=== PATIENT | male | born 1955 | race Caucasian/White ===

== ENCOUNTER → 2020-09-13 16:10 | Outpatient (CLI) | payer OTHER, SELFPAY ==
[2020-09-13 17:57] LABS: Vitamin D,25 Hydroxy 24.2 ng/mL
[2020-09-13 18:14] LABS: ALB/GLOB Ratio 1.2 RATIO (0.9-2.4); AST(SGOT) 15 U/L (15-37); Alanine Aminotransfer ALT/SGPT 23 U/L (16-61); Alkaline Phosphatase 62 U/L (45-117); Anion Gap 4 (5-15); BUN 13 mg/dL (7-18); BUN/Creat Ratio 14.8 RATIO (10-20); Calcium,Total 9.4 mg/dL (8.5-10.1); Chloride 106 mmol/L (98-107); Cholesterol 229 mg/dL (200); Creatinine, Serum 0.88 mg/dL (0.70-1.30); EST Glomerular Filtration Rate 92 mL/min (>60); Est Glom Filt Rate - Afr Amer 112 mL/min (>60); Globulin 3.2 g/dL (2.2-4.2); Glucose 75 mg/dL (74-106); High Density Lipoprotein 61 mg/dL; Potassium 3.9 mmol/L (3.5-5.1); Protein, Total 7.2 g/dL (6.4-8.2); Sodium Level 139 mmol/L (136-145); Triglycerides 58 mg/dL; Very Low Density Lipoprotein 12 mg/dL (5-40)
== END ==
PROVIDERS: Visit Provider Family Medicine
DX: Z00.00 Encounter for general adult medical examination without abnormal findings (principal); E55.9 Vitamin D deficiency, unspecified
CPT/HCPCS: 36415; 80053; 80061; 82306

== ENCOUNTER → 2020-10-15 07:55 | Outpatient (CLI) | payer OTHER, SELFPAY ==
--- NOTE | 2020-10-15 07:57 | RAD_ITS ---
STUDY: X-RAY - ESOPHAGUS (BARIUM SWALLOW) WITH FLUOROSCOPY REASON FOR EXAM: Male, 65 years old. DIFFICULTY SWALLOWING 1 MONTH -- FOOD GETS STUCK IN UPPER THROAT TECHNIQUE: 20 view(s) of the esophagus were obtained following swallowing of barium. FLUOROSCOPY TIME (if supplied): (0:30) minutes/seconds COMPARISON: None. FINDINGS: There is no demonstrated esophageal foreign body. There is no demonstrated stricture or mucosal abnormality. There is a small hiatal hernia of the fundus of the stomach. There is evidence of gastroesophageal reflux. The patient ingested a 12 mm tablet of barium without any difficulty. Normal visualized aortic arch and descending thoracic aorta. Normal visualized pulmonary parenchyma. There are diffuse degenerative changes of the visualized thoracic spine. RAD/Esophagus Dual Contrast IMPRESSION: Small sliding hiatal hernia with gastroesophageal reflux. Electronically Signed: Thomas Garcias, at 8:43 EST , Service support ,
== END ==
PROVIDERS: PCP Family Medicine; Referring Provider Family Medicine; Visit Provider Family Medicine
DX: R13.10 Dysphagia, unspecified (principal)
CPT/HCPCS: 74221

== ENCOUNTER 2021-02-08 13:02 | Emergency (ER) | payer OTHER, SELFPAY ==
[2021-02-08 13:04] VITALS: BP 111/56; PULSE 78; RESP 18; TEMP 36.1; O2SAT 100; BMI 21.9
--- NOTE | 2021-02-08 13:17 | CT_ITS ---
INDICATION: abdominal pain EXAMINATION: CT Abdomen And Pelvis W/O Contrast Injection TECHNIQUE: Helically acquired images were obtained of the abdomen and pelvis without the use of IV contrast. A radiation dose optimization technique was used for this scan. Oral contrast: None. COMPARISON: None FINDINGS: Evaluation of the solid organs and vascular structures is limited without intravenous contrast. Visualized lung bases: Unremarkable Liver: 1.1 cm cyst in the right lobe. Gallbladder: Unremarkable Spleen: Unremarkable Pancreas: Unremarkable Adrenal Glands: Unremarkable Kidneys: Mild left hydronephrosis. Mild left perinephric fat stranding. Questionable 3 mm stone in the left ureterovesical junction. Vasculature: Mild scattered aortoiliac atherosclerotic calcifications. Multiple pelvic phleboliths. GI Tract: Scattered diverticula throughout the colon without evidence of inflammation. The appendix is normal. Lymphadenopathy: None Peritoneum: No ascites. Bladder: Unremarkable Reproductive organs: The prostate is mildly enlarged. Bones/Soft tissues: Mild scattered degenerative changes of the visualized spine. CT/Abdomen/Pelvis without Cont IMPRESSION: Mild left hydronephrosis with questionable 3 mm obstructing stone in the left ureterovesical junction. Mild prostatomegaly. Recommend correlation with PSA levels. Electronically Signed: Dony Rosales MD at 14:07 EDT Tel , Service support ,
--- NOTE | 2021-02-08 13:19 | ED.DCSUM_ITS ---
History of Present Illness Chief Complaint: Flank Pain Narrative: Patient presents with left-sided flank pain that started about 3 hours ago it was intermittent sharp and stabbing radiating to his left lower quadrant and his left testicle. His symptoms are now gone. He has no current abdominal pain no flank pain no dysuria or hematuria he has no current testicular pain. Past medical history: None Medications: Reviewed Social history: Noncontributory Review of systems: All systems negative except as indicated General: No fever Eyes: No visual changes ENT: No upper airway congestion, normal voice Neck: No neck pain Cardiovascular: No chest pain Respiratory: No shortness of breath or cough Gastrointestinal: No current abdominal pain, no current CVA pain, no nausea vomiting or diarrhea Genitourinary: No current dysuria Musculoskeletal: Denies myalgias no difficulty with ambulation Skin: No rash Neurological: No memory loss, confusion or any focal weakness Hematologic: No easy bleeding or easy bruising Physical exam General: Well nourished, Well developed, No Acute Distress Head: Normocephalic, Atraumatic Eyes: Conjunctiva not pale ENT: Moist mucous membranes Neck: Supple, Nontender, No lymphadenopathy Cardiovascular: Regular rate, Regular rhythm Respiratory: No distress, CTA bilaterally Abdomen: Soft, Nontender, Nondistended Back: Nontender, Normal Inspection. Negative for: CVA tenderness Extremities: Nontender, No edema Skin: Normal color, No rash Neurological: Alert, Normal Strength, Normal Sensation Psychological: Normal affect Past Medical History - Allergies and Home Meds Allergies/Adverse Reactions: Allergies No Known Allergies Allergy (Verified 02/08/21 13:39) Primary Care Physician: Alexis Bansal MD [Primary Care Provider] - Physical Exam Vital Signs/Narrative: Vital Signs Temp Pulse Resp BP Pulse Ox 02/08/21 13:04 96.9 F L 78 18 111/56 L 100 Diagnostic/Tx/Re-eval - Medical Decision Making Patient is found to have a 3 mm stone, he has hematuria but no other signs of infection he appears well he is currently asymptomatic I will discharge with as needed analgesia and urology follow-up. ED Disposition - Plan for ED Patient: Diagnosis: Kidney stone on left side Instructions: ED Kidney Stone w/ Colic Prescriptions: Hydrocodone Bitart/Apap 5-325 [Eugene 5MG-325MG] 1 tablet PO Q4H PRN PRN 2 Days #10 tablet PRN Reason: Pain Transmission Status: Sent to [employer] #30 Referrals: Jh Fitzpatrick MD [STAFF PHYSICIAN] - 2 Days
[2021-02-08 13:36] VITALS: BP 108/66; PULSE 60; RESP 14; O2SAT 98
[2021-02-08 13:40] LABS: Hematocrit 41.1 % (40-54); Hemoglobin 13.7 g/dL (13.0-16.5); Mean Corp Hgb Conc 33.3 g/dL (32-36); Mean Corpuscular Hgb 30.9 pg (27.0-32.0); Mean Corpuscular Volume 92.8 fL (80-94); Mean Platelet Vol. 9.5 fl (6.2-12.0); Platelet Count 171 K/mm3 (150-450); RBC Distribution Width CV 12.6 % (11.6-14.6); RBC Distribution Width SD 43.2 fl (35.1-43.9); Red Blood Count 4.43 M/mm3 (4.6-6.2)
[2021-02-08 13:56] LABS: ALB/GLOB Ratio 1.1 RATIO (0.9-2.4); AST(SGOT) 12 U/L (15-37); Alanine Aminotransfer ALT/SGPT 20 U/L (16-61); Albumin, Serum 3.6 g/dL (3.2-5.0); Alkaline Phosphatase 60 U/L (45-117); Anion Gap 5 (5-15); BUN 16 mg/dL (7-18); BUN/Creat Ratio 17.8 RATIO (10-20); Calcium,Total 9.4 mg/dL (8.5-10.1); Chloride 106 mmol/L (98-107); EST Glomerular Filtration Rate 90 mL/min (>60); Est Glom Filt Rate - Afr Amer 109 mL/min (>60); Estimated Creatinine Clearance 71.53 ml/min; Globulin 3.4 g/dL (2.2-4.2); Glucose 109 mg/dL (74-106); Potassium 3.8 mmol/L (3.5-5.1); Sodium Level 139 mmol/L (136-145)
[2021-02-08 14:41] LABS: Bacteria 0 SEEN /hpf (None Seen); Mucous, Urine 0 SEEN /hpf (<or=2+); Squamous Epithelial Cells - UA 0 SEEN /hpf (0-5); White Blood Cells 0 SEEN /hpf (0-5)
[2021-02-08 14:44] LABS: Color, Urine Yellow (Yellow); Glucose, Dipstick Normal (Normal); Ketone-Dipstick Negative (Negative); Leukocyte Esterase-Dipstick Negative /ul (Negative); Nitrite-Dipstick Negative (Negative); Occult Blood-Urine 250 /ul (Negative); Protein-Dipstick 15 mg/dl (Negative); Urine Bilirubin Dipstick Negative (Negative); Urine Clarity Clear (Clear); Urine Urobilinogen 1 mg/dl (Normal)
[2021-02-08 14:52] LABS: Red Blood Cells-Urine 25-50 SEEN /hpf (0-5)
[2021-02-08 15:17] VITALS: BP 126/87; PULSE 62; RESP 15; O2SAT 98
== END 2021-02-08 15:18 | disposition home or self-care (01) ==
PROVIDERS: Emergency Provider Emergency Medicine; PCP Family Medicine
DX: N20.0 Calculus of kidney (principal); Z79.82 Long term (current) use of aspirin
CPT/HCPCS: 74176; 80053; 81001; 85027; 99285; A4216

== ENCOUNTER → 2021-02-14 15:31 | Outpatient (CLI) | payer OTHER, SELFPAY ==
[2021-02-08 13:04] VITALS: BMI 21.9
[2021-02-14 18:07] LABS: Anion Gap 3 (5-15); BUN 18 mg/dL (7-18); BUN/Creat Ratio 17.1 RATIO (10-20); Calcium,Total 9.4 mg/dL (8.5-10.1); Chloride 100 mmol/L (98-107); Creatinine, Serum 1.05 mg/dL (0.70-1.30); EST Glomerular Filtration Rate 75 mL/min (>60); Est Glom Filt Rate - Afr Amer 91 mL/min (>60); Glucose 86 mg/dL (74-106); Potassium 4.1 mmol/L (3.5-5.1); Sodium Level 135 mmol/L (136-145)
== END ==
PROVIDERS: PCP Family Medicine; Visit Provider Family Medicine
DX: N20.0 Calculus of kidney (principal)
CPT/HCPCS: 36415; 80048

== ENCOUNTER 2021-02-15 08:51 | Emergency (ER) | payer OTHER, SELFPAY ==
[2021-02-15 08:52] VITALS: BP 152/77; PULSE 71; RESP 16; TEMP 36.7; O2SAT 99; BMI 22.6
[2021-02-15] MEDS: Ondansetron 4 MG/2 ML Vial IV (09:16)
[2021-02-15] MEDS: Ketorolac 15 MG/ML Vial IV (09:16)
[2021-02-15] MEDS: 0.9% Normal Saline 1,000 ML 250 ML IV (09:19)
--- NOTE | 2021-02-15 09:32 | ED.VIS.GEN ---
History of Present Illness Chief Complaint: Flank Pain Informant: Patient Onset: Weeks Context: Sudden Onset Timing: Intermittent, Waxes and wanes Quality: Left-sided flank and lower quadrant pain Location: Left side Current Severity: Mild Maximum Severity: Severe Worsened by: Nothing Relieved by: Percocet Associated Symptoms: Nausea and urgency Narrative: Patient is 65-year-old male who was seen 1 week ago and diagnosed with an obstructing left ureterovesical junction stone that measured 3 mm in size. He followed up with his PCP. He was placed on Flomax. Presume this was due to BPH since he had evidence of BPH on scan. He denies fever, chills night sweats. He denies vomiting. He denies diarrhea. He denies blood in his urine or dysuria. There is no history of trauma. He is scheduled to see urology next week. Prior similar symptoms: Yes Recent Illness/Hospitalization: Yes - Past Medical History (1) Ureterolithiasis Status: Acute Past Medical History - Allergies and Home Meds Allergies/Adverse Reactions: Allergies No Known Allergies Allergy (Verified 02/15/21 08:52) Primary Care Physician: Alexis Bansal MD [Primary Care Provider] - Prior records reviewed: Yes Surgical History: noncontributory Lives: Spouse/ Significant Other Smoking Status: Never smoker Alcohol: None Drugs: None Review of Systems General: Denies: Chills, Fever, Malaise, Subjective, Sweats ENT: Denies: Rhinorrhea, Sore throat Cardiovascular: Denies: Chest pain, Palpitations Respiratory: Denies: Dyspnea, Cough, Sputum Gastrointestinal: Reports: Abdominal pain, Nausea. Denies: Vomiting, Diarrhea Genitourinary: Reports: - - Urgency. Denies: Dysuria, Hematuria, Frequency Musculoskeletal: Reports: Back pain - Flank left. Denies: Myalgias, Arthralgias, Neck pain, Swelling, Extremity Pain, - Skin: Denies: Wounds Neurological: Denies: Weakness, Parasthesia Hematologic: Denies: Easy bruising, Easy bleeding Physical Exam Vital Signs/Narrative: Vital Signs Temp Pulse Resp BP Pulse Ox 02/15/21 08:52 98.1 F 71 16 152/77 H 99 Inital Vital Signs reviewed: Yes General: Well nourished, Well developed, Acute Distress Head: Normocephalic, Atraumatic Eyes: Perrl, EOMI. Negative for: Pale conjunctiva, Scleral icterus ENT: Moist mucous membranes, No rhinorrhea Neck: Supple, Nontender Cardiovascular: Regular rate, Regular rhythm, No murmurs, Normal S1, Normal S2 Respiratory: No distress, CTA bilaterally, Chest nontender Abdomen: Soft, Nontender, Nondistended, Normal bowel sounds. Negative for: Hernia irreducible Back: Nontender, Normal Inspection, CVA tenderness - Left side Extremities: Nontender, No edema Skin: Normal color, No rash, No Trauma Neurological: Alert, Oriented x3, Cranial nerves II-XII grossly intact, Normal Strength, Normal Sensation Psychological: Normal affect Diagnostic/Tx/Re-eval Laboratory Results 02/15/21 09:50 Urine Color Yellow Urine Clarity Sl. Cloudy Urine pH 6.0 Ur Specific Bivins 1.020 Urine Protein Negative Urine Glucose (UA) Normal Urine Ketones Negative Urine Occult Blood Negative Urine Nitrite Negative Urine Bilirubin Negative Urine Urobilinogen Normal Ur Leukocyte Esterase 25 H Urine RBC 0 SEEN Urine WBC 0-5 SEEN Ur Squamous Epith Cells 0 SEEN Urine Bacteria RARE Urine Mucus 0 SEEN Urine is not infected. Patient was reassessed at 1040. He is pain-free. Plan is to discharge with prescription for anti-inflammatory. - Medical Decision Making Urine was obtained and patient was medicated with Toradol and Zofran since he has normal renal function. He did drive himself to the emergency department. ED Disposition - Plan for ED Patient: Disposition: Home or Assisted Living Diagnosis: Hydronephrosis with urinary obstruction due to ureteral calculus, Renal colic on left side Prescriptions: Ketorolac [Toradol] 10 mg PO Q6H #20 tab Transmission Status: Pending to [employer] #30 Referrals: Alexis Bansal MD [Primary Care Provider] - Jh Fitzpatrick MD [STAFF PHYSICIAN] - 5-7 Days
[2021-02-15 10:05] LABS: Mucous, Urine 0 SEEN /hpf (<or=2+); Red Blood Cells-Urine 0 SEEN /hpf (0-5); Squamous Epithelial Cells - UA 0 SEEN /hpf (0-5)
[2021-02-15 10:09] LABS: Color, Urine Yellow (Yellow); Glucose, Dipstick Normal (Normal); Ketone-Dipstick Negative (Negative); Leukocyte Esterase-Dipstick 25 /ul (Negative); Nitrite-Dipstick Negative (Negative); Occult Blood-Urine Negative /ul (Negative); Protein-Dipstick Negative (Negative); Urine Bilirubin Dipstick Negative (Negative); Urine Clarity Sl. Cloudy (Clear); Urine Urobilinogen Normal (Normal)
[2021-02-15 10:16] LABS: Bacteria RARE /hpf (None Seen); White Blood Cells 0-5 SEEN /hpf (0-5)
--- NOTE | 2021-02-15 10:49 | ED.VISSUMM ---
- ER Visit Summary Date of Service: 02/15/21 Chief Complaint: [] History of Present Illness: The patient is a 65 M [] Physical Examination: [] Test Results: [] Emergency Department Course and Treatment: [] Treatment Plan: [] Disposition: [] Impression: [] This note was generated with [employer] dictation software. It may contain incorrect words, spelling, and punctuation that were not noted in review of the chart prior to signing ED Disposition - Plan for ED Patient: Disposition: Home or Assisted Living Diagnosis: Hydronephrosis with urinary obstruction due to ureteral calculus, Renal colic on left side Instructions: ED Kidney Stone w/ Colic Prescriptions: Ketorolac [Toradol] 10 mg PO Q6H #20 tab Transmission Status: Sent to [facility] #30 Referrals: Jh Fitzpatrick MD [STAFF PHYSICIAN] - 5-7 Days Alexis Bansal MD [Primary Care Provider] -
[2021-02-15 11:20] VITALS: BP 102/56; PULSE 70; RESP 16
== END 2021-02-15 11:22 | disposition home or self-care (01) ==
PROVIDERS: Emergency Provider Emergency Medicine; PCP Family Medicine
DX: N13.2 Hydronephrosis with renal and ureteral calculous obstruction (principal); Z79.82 Long term (current) use of aspirin
CPT/HCPCS: 81001; 96361; 96374; 96375; 99283; J7030; J2405

== ENCOUNTER 2021-12-02 13:40 | Day surgery (SDC) | payer MEDICARE, SELFPAY ==
--- NOTE | 2021-11-27 13:20 | HP.PCM_ITS ---
History and Physical Date of Admission: 12/02/21 Intake Visit Reasons: Dysphagia Allergies No Known Allergies Allergy (Verified 02/15/21 08:52) [facility] Medical History (Updated 10/30/21 @ 14:[address] Lombardo Friend, DO) Hiatal hernia Social History Smoking Status: Never smoker HPI HPI Details: SHANNON HEALY, is a 66 M who presents to the office today for evaluation of esophageal dysphagia. He is not having any chest pain or shortness of breath. He denies any history of gastroesophageal reflux disease. He is not have any nausea. He has no history of diabetes or COPD. His weight has been stable. He has no family history of any GI malignancy. Four year prior he began having difficulty with swallowing with progressive wo rsening. ENT Dr. Alvarez did an office procedure and was unable to see an abnormality. Barium Swallow performed 10/15/20 and found a small sliding hiatal hernia with GERD. CT abd/pel without contrast 02/08/21 found 1.1cm cyst in right lobe of liver. Scattered diverticula throughout the colon without evidence of inflammation. Mild left kidney hydronephrosis. Mild left perinephric fat stranding with questionable 3mm stone. Mild prostatomegaly, recommend correlation with PSA. ROS Eyes Eyes: Positive for vision loss ENT ENT: Positive for hearing loss and tinnitus Endo Endocrine: Positive for cold intolerance Exam Const General: cooperative and comfortable Nutritional Appearance: average body habitus and well nourished [facility] Head: normal to inspection Ears: hearing grossly normal bilaterally Nose: external nose normal Face and sinus: normal facial exam Mouth: oral mucosae normal Throat: posterior oropharynx normal Eyes General: appearance normal, both eyes and all related structures Neck Neck: normal visual inspection Chest Chest palpation & inspection: normal inspection of the chest and normal palpation of entire chest wall Resp Effort & Inspection: normal respiratory effort Auscultation: Bilateral: Clear to Auscultation Cardio Palpation: normal PMI Rate: regular rate Rhythm: regular rhythm GI Inspection: normal to inspection Auscultation: normal bowel sounds Percussion: normal to percussion Palpation: no hepatosplenomegaly Skin General: no rashes or lesions noted Neuro General: patient alert Extrem General: normal to inspection Psych Affect: normal affect Quality Reporting Tobacco Screening ([facility] 138) Smoking Status: Never smoker Assessment and Plan Assessment and Plan (1) Dysphagia: Orders: Orders: EGD Today Plan - Dr. Lombardo Friend, DO: Differential diagnosis for his esophageal dysphagia including cricopharyngeal achalasia, gastric inlet patch with inflammation, esophageal diverticulum, esophagitis, esophageal web or esophageal ring. He will undergo an upper endoscopy. He was explained the, benefits and risk including infection, sepsis, perforation, need emergent surgery . He will have an ASA of 1 (2) Hiatal hernia: Status: Acute Plan - Dr. Lombardo Friend, DO: Patient was discovered to have a small hiatal hernia which was seen on previous CT scan in January 2020. At this time is not having any problems with heartburn, nausea, chest pain. Therefore I told her that it and I would not recommend any surgical evaluation for the hiatal hernia. Of course I will assess it until we perform upper endoscopy. No change in H&P
[2021-12-02] VITALS (7 sets, daily range): BP systolic 108–137; BP diastolic 71–75; PULSE 59–74; RESP 16–18; TEMP 36.5–37; O2SAT 93–100; BMI 24.7
[2021-12-02] MEDS: Lactated Ringers 1,000 ML 15 ML IV (14:04)
--- NOTE | 2021-12-02 14:30 | EGD_PTH ---
PATIENT: SHANNON HEALY LOC: [facility] U#:[id number] AGE/SX: 66/M ROOM: RE12/02/[address]: Dr. Grupo Potter DO : 1955 BED: DIS: 12/02/2021 SPEC #: [id number] RECD: 12/02/21 16:48 STATUS: ANUM DANIELLE #: [id number] JONH: 12/02/21 14:[address]: Grupo Potter DEPT: SURGICAL PATHOLOGY RECD BY: Mignon Mills ENTERED: 12/03/21 08:46 SP TYPE: EGD BIOPSY CARROLL DR: Dr. Alexis Bansal MD Tissues: Esophagus, NOS Procedures: Special Stain Group II Surgery Specimen Level IV Alcian Blue/PAS (control) HEADER OPERATION: EGD with biopsy and dilation (MAC) PRE-OP DIAGNOSIS: Dysphagia, hiatal hernia TISSUE SUBMITTED: Distal esophagus biopsy MICROSCOPIC DIAGNOSIS Distal esophagus, biopsy: Fragments of gastroesophageal mucosa with moderate chronic inflammation. Intestinal metaplasia (goblet cell metaplasia) is not identified. See comment. FOREIGN:sophie 12/04/2021 COMMENT Alcian blue/PAS stain with matched control is used in the evaluation of the specimen. MICROSCOPIC DESCRIPTION Slides are reviewed. GROSS DESCRIPTION Received in fixative is one container labeled with the patient's name and designated distal esophagus biopsy. The specimen consists of multiple irregular fragments of light barnett soft tissue that in aggregate measure 2 x 0.6 x 0.1 cm. The specimen is totally submitted in one cassette. / FOREIGN:sophie 12/03/2021 TC:3 CPT: 27893, 60334
--- NOTE | 2021-12-02 14:47 | PCM.HP.BLA ---
History and Physical Date of Admission: 12/02/21 6 M who presents to the office today for evaluation of esophageal dysphagia. He is not having any chest pain or shortness of breath. He denies any history of gastroesophageal reflux disease. He is not have any nausea. He has no history of diabetes or COPD. His weight has been stable. He has no family history of any GI malignancy. Four year prior he began having difficulty with swallowing with progressive worsening. ENT Dr. Alvarez did an office procedure and was unable to see an abnormality. Barium Swallow performed 10/15/20 and found a small sliding hiatal hernia with GERD. CT abd/pel without contrast 02/08/21 found 1.1cm cyst in right lobe of liver. Scattered diverticula throughout the colon without evidence of inflammation. Mild left kidney hydronephrosis. Mild left perinephric fat stranding with questionable 3mm stone. Mild prostatomegaly, recommend correlation with PSA. ROS Eyes Eyes: Positive for vision loss ENT ENT: Positive for hearing loss and tinnitus Endo Endocrine: Positive for cold intolerance Exam Const General: cooperative and comfortable Nutritional Appearance: average body habitus and well nourished HENMT Head: normal to inspection Ears: hearing grossly normal bilaterally Nose: external nose normal Face and sinus: normal facial exam Mouth: oral mucosae normal Throat: posterior oropharynx normal Eyes General: appearance normal, both eyes and all related structures Neck Neck: normal visual inspection Chest Chest palpation & inspection: normal inspection of the chest and normal palpation of entire chest wall Resp Effort & Inspection: normal respiratory effort Auscultation: Bilateral: Clear to Auscultation Cardio Palpation: normal PMI Rate: regular rate Rhythm: regular rhythm GI Inspection: normal to inspection Auscultation: normal bowel sounds Percussion: normal to percussion Palpation: no hepatosplenomegaly Skin General: no rashes or lesions noted Neuro General: patient alert Extrem General: normal to inspection Psych Affect: normal affect Quality Reporting Tobacco Screening ([facility] 138) Smoking Status: Never smoker Assessment and Plan Assessment and Plan (1) Dysphagia: Orders: Orders: EGD Today Plan - Dr. Lombardo Friend, DO: Differential diagnosis for his esophageal dysphagia including cricopharyngeal achalasia, gastric inlet patch with inflammation, esophageal diverticulum, esophagitis, esophageal web or esophageal ring. He will undergo an upper endoscopy. He was explained the, benefits and risk including infection, sepsis, perforation, need emergent surgery . He will have an ASA of 1 (2) Hiatal hernia: Status: Acute Plan - Dr. Lombardo Friend, DO: Patient was discovered to have a small hiatal hernia which was seen on previous CT scan in January 2020. At this time is not having any problems with heartburn, nausea, chest pain. Therefore I told her that it and I would not recommend any surgical evaluation for the hiatal hernia. Of course I will assess it until we perform upper endoscopy. This is an up to date H&P and there are no changes from when the patient was seen in the office
--- NOTE | 2021-12-02 15:19 | OP.EGD_ITS ---
Patient Name: Trey Guerra Procedure Date: 12/02/2021 2:47 PM Date of : 1955 Age: 66 Procedure: Upper GI endoscopy Indications: Dysphagia Providers: Grupo Potter DO Referring MD: Grupo Potter DO Medicines: See the Anesthesia note for documentation of the administered medications Patient Profile: This is a 66 year old male. Refer to note in patient chart for documentation of history and physical. Patient has symptoms of chronic dysphagia. Complications: No immediate complications. Procedure: Pre-Anesthesia Assessment: - Prior to the procedure, a History and Physical was performed, and patient medications and allergies were reviewed. The patient is competent. The risks and benefits of the procedure and the sedation options and risks were discussed with the patient. All questions were answered and informed consent was obtained. Patient identification and proposed procedure were verified by the physician in the pre-procedure area. Mental Status Examination: alert and oriented. Airway Examination: normal oropharyngeal airway and neck mobility. Respiratory Examination: clear to auscultation. CV Examination: normal. Prophylactic Antibiotics: The patient does not require prophylactic antibiotics. Prior Anticoagulants: The patient has taken no previous anticoagulant or antiplatelet agents. ASA Grade Assessment: II - A patient with mild systemic disease. After reviewing the risks and benefits, the patient was deemed in satisfactory condition to undergo the procedure. The anesthesia plan was to use moderate sedation / analgesia (conscious sedation). Immediately prior to administration of medications, the patient was re-assessed for adequacy to receive sedatives. The heart rate, respiratory rate, oxygen saturations, blood pressure, adequacy of pulmonary ventilation, and response to care were monitored throughout the procedure. The physical status of the patient was re-assessed after the procedure. After obtaining informed consent, the endoscope was passed under direct vision. Throughout the procedure, the patient's blood pressure, pulse, and oxygen saturations were monitored continuously. The Endoscope was introduced through the mouth, and advanced to the second part of duodenum. The upper GI endoscopy was accomplished without difficulty. The patient tolerated the procedure well. Moderate Sedation: Moderate (conscious) sedation was administered by the endoscopy nurse and supervised by the endoscopist. The patient's oxygen saturation, heart rate, blood pressure and response to care were monitored. Total physician intraservice time was 15 minutes. Scope In: 3:02:01 PM Scope Out: 3:09:13 PM Total Procedure Duration Time 0 hours 7 minutes 12 seconds Findings: A non-bleeding diverticulum with a small opening and no stigmata of recent bleeding was found at the cricopharyngeus. A moderate Schatzki ring was found in the middle third of the esophagus and in the lower third of the esophagus. A guidewire was placed and the scope was withdrawn. Dilation was performed with a Savary dilator with no resistance at 27 Fr. A guidewire was placed and the scope was withdrawn. Dilation was performed with a Savary dilator with no resistance at 51 Fr. The dilation site was examined following endoscope reinsertion and showed moderate improvement in luminal narrowing. Estimated blood loss was minimal. Mucosal changes including circumferential folds were found in the middle third of the esophagus and in the lower third of the esophagus. Biopsies were obtained from the proximal and distal esophagus with cold forceps for histology of suspected eosinophilic esophagitis. Verification of patient identification for the specimen was done. Estimated blood loss was minimal. A medium-sized hiatal hernia was present. No other significant abnormalities were identified in a careful examination of the stomach. The second portion of the duodenum was normal. 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 - Moderate Schatzki ring. Dilated. - Esophageal mucosal changes consistent with eosinophilic esophagitis. Biopsied. - Medium-sized hiatal hernia. - Normal second portion of the duodenum. Recommendation: - Discharge patient to home. - Resume previous diet today. - Continue present medications. - Await pathology results. - Return to my office. Procedure Code(s): --- Professional --- 46136, Esophagogastroduodenoscopy, flexible, transoral; with insertion of guide wire followed by passage of dilator(s) through esophagus over guide wire 50925, 59, Esophagogastroduodenoscopy, flexible, transoral; with biopsy, single or multiple 94240, 59, Moderate sedation services provided by the same physician or other qualified health primary care provider performing the diagnostic or therapeutic service that the sedation supports, requiring the presence of an independent trained observer to assist in the monitoring of the patient's level of consciousness and physiological status; initial 15 minutes of intraservice time, patient age 5 years or older CPT copyright 2017 [employer]. All rights reserved. The codes documented in this report are preliminary and upon editor department review may be revised to meet current compliance requirements. Grupo Potter DO 12/02/2021 3:18:57 PM This report has been signed electronically. Number of Addenda: 1 Note Initiated On: 12/02/2021 2:47 PM Addendum Number: 1 Addendum Date: 07/13/2022 6:52:36 AM MAC was used for sedation during this procedure. Grupo Potter DO 07/13/2022 6:52:42 AM This report has been signed electronically.
--- NOTE | 2021-12-02 15:20 | OP.CCLET_ITS ---
07/13/2022 Alexis Bansal MD [address] [id number] Re : Upper GI endoscopy procedure for Trey Guerra Dear Dr. Bansal This procedure was performed on Thursday, December 02, 2021. 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 - Moderate Schatzki ring. Dilated. - Esophageal mucosal changes consistent with eosinophilic esophagitis. Biopsied. - Medium-sized hiatal hernia. - Normal second portion of the duodenum. Recommendations : - Discharge patient to home. - Resume previous diet today. - Continue present medications. - Await pathology results. - Return to my office. My findings are described in the full procedure note, which is enclosed. If I can be of further assistance, please feel free to contact me at . Sincerely, Grupo Potter, 12/02/2021 3:18:57 PM This report has been signed electronically.
== END 2021-12-02 23:59 | disposition home or self-care (01) ==
LOC: EN 13:40 → AC 13:45
PROVIDERS: PCP Family Medicine; Referring Provider Family Medicine; Visit Provider Internal Medicine Gastroenterology
PROC: 0DJ08ZZ Inspection of Upper Intestinal Tract, Via Natural or Artificial Opening Endoscopic (ICD-10-PCS; CPT 43235; principal; 2021-12-02 14:25)
DX: K20.0 Eosinophilic esophagitis (principal); K22.2 Esophageal obstruction; K44.9 Diaphragmatic hernia without obstruction or gangrene; Z79.82 Long term (current) use of aspirin; Z79.899 Other long term (current) drug therapy
CPT/HCPCS: 43248; 43239; 87426; 88305; 88313; C9803; J7120; C1769; J2405

== ENCOUNTER → 2022-12-18 | Outpatient (CLI) | payer MEDICARE, SELFPAY ==
[2022-12-18 15:44] LABS: Absolute Lymphocyte Count 1.39 X10^3/uL (0.83-4.51); Absolute Neutrophil Count 2.6 X10^3/uL (2.0-7.7); Basophil# 0.02 X10^3/uL; Basophil% 0.5 % (0-1); Eosinophil# 0.08 X10^3/uL; Eosinophils% 1.8 % (0-5); Hematocrit 44.9 % (40-54); Lymphocyte # 1.39 X10^3/ul (0.83-4.51); Lymphocyte % 31.3 % (19-41); Mean Corp Hgb Conc 33.4 g/dL (32-36); Mean Corpuscular Volume 92.8 fL (80-94); Mean Platelet Vol. 9.7 fl (6.2-12.0); Monocyte# 0.32 X10^3/uL; Monocyte% 7.2 % (0-10); NRBC Flagged by Analyzer 0 % (0-5); Neutrophil # 2.62 X10^3/uL (2.7-7.7); Platelet Count 195 K/mm3 (150-450); RBC Distribution Width CV 12.4 % (11.6-14.6); RBC Distribution Width SD 42.5 fl (35.1-43.9); Red Blood Count 4.84 M/mm3 (4.6-6.2); White Blood Count 4.4 K/mm3 (4.4-11.0)
[2022-12-18 15:46] LABS: Vitamin D,25 Hydroxy 116.6 ng/mL
[2022-12-18 15:53] LABS: ALB/GLOB Ratio 1.2 RATIO (0.9-2.4); AST(SGOT) 17 U/L (15-37); Alanine Aminotransfer ALT/SGPT 20 U/L (16-61); Albumin, Serum 3.8 g/dL (3.2-5.0); Alkaline Phosphatase 48 U/L (45-117); Anion Gap 7 (5-15); BUN 12 mg/dL (7-18); BUN/Creat Ratio 13.1 RATIO (10-20); Bilirubin, Direct 0.28 mg/dL (0.00-0.30); Calcium,Total 9.4 mg/dL (8.5-10.1); Chloride 103 mmol/L (98-107); Cholesterol 192 mg/dL (200); Creatinine, Serum 0.92 mg/dL (0.70-1.30); EST Glomerular Filtration Rate 88 mL/min (>60); Est Glom Filt Rate - Afr Amer 106 mL/min (>60); Globulin 3.1 g/dL (2.2-4.2); Glucose 83 mg/dL (74-106); High Density Lipoprotein 53 mg/dL; Potassium 3.9 mmol/L (3.5-5.1); Protein, Total 6.9 g/dL (6.4-8.2); Sodium Level 138 mmol/L (136-145); Triglycerides 98 mg/dL; Very Low Density Lipoprotein 20 mg/dL (5-40)
== END | disposition home or self-care (01) ==
LOC: MFPLAB 11:31
PROVIDERS: PCP Family Medicine; Referring Provider Family Medicine; Visit Provider Family Medicine
DX: E78.5 Hyperlipidemia, unspecified (principal); E55.9 Vitamin D deficiency, unspecified
CPT/HCPCS: 36415; 80053; 80061; 82248; 82306; 85025

== ENCOUNTER → 2023-07-09 | Outpatient (CLI) | payer MEDICARE, SELFPAY ==
[2023-07-09 12:46] LABS: PSA,Total - Annual Screen 1.45 ng/mL (0.00-4.00)
== END | disposition home or self-care (01) ==
LOC: MTLAB 10:47
PROVIDERS: PCP Family Medicine; Referring Provider Family Medicine; Visit Provider Family Medicine
DX: Z12.5 Encounter for screening for malignant neoplasm of prostate (principal)
CPT/HCPCS: 36415; 84153; G0103

== ENCOUNTER → 2024-01-05 | Outpatient (CLI) | payer MEDICARE, SELFPAY ==
[2024-01-05 12:20] LABS: Absolute Lymphocyte Count 1.48 X10^3/uL (0.83-4.51); Absolute Neutrophil Count 3.5 X10^3/uL (2.0-7.7); Basophil# 0.05 X10^3/uL; Basophil% 0.9 % (0-1); Eosinophil# 0.13 X10^3/uL; Eosinophils% 2.3 % (0-5); Hematocrit 44.9 % (40-54); Hemoglobin 14.7 g/dL (13.0-16.5); Lymphocyte # 1.48 X10^3/ul (0.83-4.51); Lymphocyte % 26.1 % (19-41); Mean Corp Hgb Conc 32.7 g/dL (32-36); Mean Corpuscular Hgb 29.6 pg (27.0-32.0); Mean Corpuscular Volume 90.5 fL (80-94); Mean Platelet Vol. 9.1 fl (6.2-12.0); Monocyte# 0.46 X10^3/uL; Monocyte% 8.1 % (0-10); NRBC Flagged by Analyzer 0 % (0-5); Neutrophil # 3.54 X10^3/uL (2.7-7.7); Neutrophil % 62.2 % (47-70); Platelet Count 253 K/mm3 (150-450); RBC Distribution Width CV 12.5 % (11.6-14.6); RBC Distribution Width SD 41.5 fl (35.1-43.9); Red Blood Count 4.96 M/mm3 (4.6-6.2); White Blood Count 5.7 K/mm3 (4.4-11.0)
[2024-01-05 12:47] LABS: Vitamin D,25 Hydroxy 96.9 ng/mL
[2024-01-05 12:58] LABS: ALB/GLOB Ratio 1.1 RATIO (0.9-2.4); AST(SGOT) 18 U/L (15-37); Alanine Aminotransfer ALT/SGPT 16 U/L (16-61); Albumin, Serum 3.8 g/dL (3.2-5.0); Alkaline Phosphatase 58 U/L (45-117); Anion Gap 7 (5-15); BUN 14 mg/dL (7-18); BUN/Creat Ratio 14.9 RATIO (10-20); Calcium,Total 9.4 mg/dL (8.5-10.1); Chloride 104 mmol/L (98-107); Cholesterol 210 mg/dL (200); Creatinine, Serum 0.94 mg/dL (0.70-1.30); EST Glomerular Filtration Rate 85 mL/min (>60); Est Glom Filt Rate - Afr Amer 102 mL/min (>60); Globulin 3.4 g/dL (2.2-4.2); Glucose 98 mg/dL (74-106); High Density Lipoprotein 56 mg/dL; Potassium 3.8 mmol/L (3.5-5.1); Protein, Total 7.2 g/dL (6.4-8.2); Sodium Level 139 mmol/L (136-145); Triglycerides 87 mg/dL; Very Low Density Lipoprotein 17 mg/dL (5-40)
--- OUTSIDE RECORDS SUMMARY | 2024-01-05 13:50 | XMS RPT_ITS | CCD ---
Author Name Unknown Address [address] [place] [address] Organization [facility] Care Team Providers Care Care Transitions Manager Name Role Phone Sagar Hernandez DO Primary Care Provider [phone] Friend [employer]upo MTZ Unavailable [phone] Attending Unavailable UBALDO REY Referring UnavailSAGAR Bailey Primary Care Unavailable PHOEBE BAR Attending Unavailable UBALDO REY Referring Unavailabl e SAGAR HERNANDEZ Primary Care Unavailable UBALDO REY Referring Unavailabl e SAGAR HERNANDEZ Primary Care Unavailable UBALDO REY Attending UnavailSAGAR Bailey Primary Care Unavailable Medications Completed/Discontinued Medications Medication Drug Class(es) Dates Sig (Normalized) Sig (Original) tamsulosin hydrochloride 0.4 mg oral capsule (1 source) alpha-Adrenergic Robert Start: 07-12-2014 take 1 capsule by mouth once daily at bedtime tamsulosin (FLOMAX) 0.4 mg cp24 Indications: Urinary retention Take 1 capsule by mouth daily at bedtime. 30 capsule 0 07/12/2014 Active Problems Active Problems Problem Classification Problem Date Documented Da te Episodic/Chronic Esophageal disorders (2 sources) Zenker's diverticulum; Translations: [Diverticulum of esophagus, acquired] Onset: 07-20-2023 05-19-2023 Episodic Past or Other Problems Problem Classification Problem Date Documented Da te Episodic/Chronic Abdominal hernia (1 source) Umbilical hernia; Translations: [Umbilical hernia without obstruction or gangrene] Onset: 06-11-2014 06-11-2014 Episodic Other screening for suspected conditions (not mental disorders or infectious disease) (1 source) Patient encounter status; Translations: [Encounter for screening for malignant neoplasm of intestinal tract, unspecified] Onset: 06-11-2014 06-11-2014 Episodic Results Test Name Value Interpretation Reference Range Facil ity Encounters Encounter Date Encounter Type Care Provider Facility Start: 07-20-2023 End: 07-20-2023 ambulatory PHOEBE Bri YOSVANY Facility:[facility] Start: 06-02-2023 End: 06-03-2023 ambulatory UBALDO REY Facility:[facility] Start: 05-19-2023 End: 05-20-2023 ambulatory UBALDO REY Facility:[facility] Start: 05-19-2023 End: 05-19-2023 ambulatory Ubaldo Rey MD Work Phone: Gastroenterology Procedures Date Procedure Procedure Detail Performing Clinician Start: 07-04-2014 Colonoscopy Lina Rey MD Work Phone: Plan of Treatment Date Care Activity Detail Author Start: 06-25-2023 Influenza vaccination INFLUENZA (#1) [facility] Start: 05-19-2023 End: 07-19-2023 Basic metabolic 2000 panel - Serum or Plasma BASIC METABOLIC PNL Lab Routine Zenker's diverticulum Expected: 05/19/2023, Expires: 07/19/2023 [facility] Work Phone: Payers Date Payer Category Payer Medicare [employer] MEDICARE HU[employer]NA GOLD PLUS [id number] 2022-Present [phone] [place] [id number] HMO [id number] 2022 Private Health Insurance [id number] Social History Date Type Detail Facility Start: 06-11-2014 Tobacco smoking status NHIS Never sm oked tobacco [facility] Start: 07-19-2014 Alcohol intake Current non-dr agency operator of alcohol (finding) [facility] Start: 05-19-2023 History of Social function [facility] Start: 05-19-2023 Area Deprivation Index [facility] National Score (1-10 0), lower number is lower risk 40 [facility] Start: 1955 Sex Assigned At Not on file [facility] Medical Equipment Procedure Code Equipment Code Equipment Origin al Text Equipment Identifier Dates Patch Ventral He [id number] 46cm - [id number] Start: 07-11-2014 Clinical Note 07-20-2023 Note Date & Type Note Facility 07-20-2023 Note HNO ID: [id number] Author: Dave Joya APRN.GETTER OPERATOR Service: ? Author Type: Nurse Asic Engineer Type: Anesthesia Procedure Notes Filed: 07/20/2023 8:03 AM Note Text: ANESTHESIOLOGY PROCEDURE NOTE Airway General Information Procedure Start Time/Medication Administration: 07/20/2023 7:53 AM Patient location during procedure: OR Timeout Performed Pre-procedure: timeout performed Consent Obtained: Yes Patient identity confirmed: arm band Staffing GETTER OPERATOR: Dave Joya APRN.GETTER OPERATOR Performed by: NITISH Indications and Patient Condition Indications for airway management: anesthesia Preoxygenated: yes anesthesia circuit Patient position: sniffing Method: rapid sequence Cricoid Pressure: No Final Airway Details Final airway type: endotracheal airway Final Endotracheal Airway: ETT Cuffed: yes Successful intubation technique: video laryngoscopy Devices used: Thirsty Endotracheal tube insertion site: oral Blade size: #3 ETT size (mm): 7.5 Measured from: lips Measurement (cm): 24 Placement verified by: chest auscultation and capnometry Cormack-Lehane Classification: grade I - full view of glottis Number of attempts at approach: 1 Failed airway: no Unrecognized esophageal intubation: no Airway not difficult SIGNATURE: Dave Joya APRN.GETTER OPERATOR PATIENT NAME: Trey Healy DATE: July 20, 2023 TIME: 8:02 AM CSN: [id number] [facility] Clinical Note 07-20-2023 Note Date & Type Note Facility 07-20-2023 Note Q3 Patient Name: Trey Healy Procedure Date: 07/20/2023 7:02 AM Date of : 1955 Admit Type: Outpatient Age: 68 Gender: Male Note Status: Finalized Attending MD: Ubaldo Rey MD Procedure: Upper GI endoscopy Indications: Dysphagia. Small diverticulum at cricopharyngeus on OSH esophagram few years ago. Providers: Ubaldo Rey MD Patient Profile: This is a 68 year old male. Refer to note in patient chart for documentation of history and physical. Referring Physician: Ubaldo Rey MD (Referring MD) Medicines: Monitored Anesthesia Care, General Anesthesia Complications: No immediate complications. Requesting Provider: Procedure: Pre-Anesthesia Assessment: - Prior to the procedure, a History and Physical was performed, and patient medications and allergies were reviewed. The patient's tolerance of previous anesthesia was also reviewed. The risks and benefits of the procedure and the sedation options and risks were discussed with the patient. All questions were answered, and informed consent was obtained. Prior Anticoagulants: The patient has taken no anticoagulant or antiplatelet agents. ASA Grade Assessment: II - A patient with mild systemic disease. After reviewing the risks and benefits, the patient was deemed in satisfactory condition to undergo the procedure. After obtaining informed consent, the endoscope was passed under direct vision. Throughout the procedure, the patient's blood pressure, pulse, and oxygen saturations were monitored continuously. The Endoscope was introduced through the mouth, and advanced to the second part of duodenum. The upper GI endoscopy was accomplished without difficulty. The patient tolerated the procedure well. Moderate Sedation: MAC anesthesia was administered by the anesthesia team. Findings: The examined duodenum was normal. The entire examined stomach was normal. One benign-appearing, intrinsic mild stenosis was found at upper esophageal sphincter with mildly prominent cricopharyngeus. No obvious diverticulum seen. The stenosis was traversed. A guidewire was placed and the scope was withdrawn. Dilation was performed with a Savary dilator with mild resistance at 18 mm. The dilation site was examined following endoscope reinsertion and showed mild improvement in luminal narrowing. Estimated blood loss: none. Cricopharyngeus was successfully injected with 100 units botulinum toxin. 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 Dilated to 18mm. Injected with botulinum toxin. Estimated Blood Loss: Estimated blood loss: none. Recommendation: - Discharge patient to home. - Resume previous diet. - Observe patient's clinical course and response to treatment. - Patient has a contact number available for emergencies. The signs and symptoms of potential delayed complications were discussed with the patient. Return to normal activities tomorrow. Written discharge instructions were provided to the patient. Procedure Code(s): --- Professional --- 43960 27400, 59 CPT copyright 2020 [employer]. All rights reserved. Attending Participation: I personally performed the entire procedure. Scope In: 8:01:37 AM Scope Out: 8:20:56 AM MD Ubaldo Cruz MD 07/20/2023 8:29:18 AM This report has been signed electronically by Ubaldo Rey MD Number of Addenda: 0 Note Initiated On: 07/20/2023 7:02 AM [facility] Progress note 05-19-2023 Note Date & Type Note Facility 05-19-2023 Note HNO ID: [id number] Author: Ubaldo Rey MD Service: ? Author Type: Physician Type: Progress Notes Filed: 05/19/2023 12:31 PM Note Text: VIRTUAL VISIT PROGRESS NOTE This is a virtual visit using Clusterize video visit. It required patient-provider interaction for the medical decision making as documented below. Due to technical issues with video, had to revert to telephone visit. I have communicated my name and active licensure. The patient's identity and physical location were verified at the time of this visit. Either the patient or their legal packaging sales representative has been informed of the risks and benefits of -- and alternatives to -- treatment through a remote evaluation and consents to proceed with the evaluation remotely. Trey Healy is a 68 year old male seen at the request of Dr. Potter and Saundra Kramer NP-Kobe for evaluation of Zenker's diverticulum. He is having difficulty with swallowing solids and semi solids. Denies symptoms with liquids, regurgitation, or coughing. Denies use of blood thinners. Denies smoking. Zenker Symptom Score. Pre Pocedure Weight loss (over one year) - 0 none 0; 1-10 lbs (0.45-4.54 kg) 1; 11-20 lbs (4.99-9.07 kg) 2;>20 lbs (>9.07 kg) 3 Dysphagia - 2 none 0; solids 1; semi-solids 2; solid and liquids 3 Oropharyngeal Symptoms - 0 Regurgitation none 0; occasional 1; daily 2 Halitosis - 0 none 0; occasional 1; daily 2 Respiratory Symptoms - 0 Cough none 0; occasional 1; daily 2 Hoarseness - 1 none 0; occasional 1; daily 2 Pneumonia - 0 No 0; Yes 2 TOTAL SCORE: 3/16 Size of Zenkers diverticulum - cm Duration of symptoms - 4 years Globus sensation - no Last Office Visit 03/15/2023 IRIS Hernandez EGD 12/02/2021 LABS: No recent labs to review HISTORY REVIEWED (electronic chart updated): PAST MEDICAL HISTORY Diagnosis Date [place] (hard of hearing) Migraines PAST SURGICAL HISTORY Procedure Laterality Date COLONOSCOPY 2013 PAST SURGICAL HISTORY OF excision of nevi superior left eye REPAIR UMBILICAL FOX,5+Y/O,LENNY 07-11-14 VASECTOMY FAMILY HISTORY Problem Relation Age of Onset Diabetes Mother Social History Tobacco Use Smoking status: Never Substance Use Topics Alcohol use: No Drug use: No Current Outpatient Medications Medication Sig tamsulosin (FLOMAX) 0.4 mg cp24 Take 1 capsule by mouth daily at bedtime. No current facility-administered medications for this visit. ALLERGIES No Known Allergies REVIEW OF SYSTEMS: GENERAL: feeling well without fatigue, no recent change in weight GI: normal appetite, tolerating PO well, BMs normal, and no abdominal pain Answers submitted by the patient for this visit: Review of Systems Gastroenterology (Submitted on 05/13/2023) Fever: No Chills: No Night Sweats: No Unitentional Weight Change: No A Cough: No Difficulty Breathing: No Chest Pain: No Belly pain: No A feeling of fullness or have belly pain after eating: No Food getting stuck in your throat or chest after eating: Yes Nausea - that is, a feeling like you could vomit: No Regurgitation - that is, food or liquid coming back up into your throat or mouth without vomiting, or feel burning behind your breast bone: Yes Loss of appetite: No To throw up or vomit: No Blood in your stools: No Black tarry stools: No Loose or watery stools: No The feeling like you need to empty your bowels right away - that is, feel as if you would have an accident: No Bowel incontinence - that is, have an accident because you cannot make it to the bathroom in time: No Problems with straining while having bowel movements , hard or lumpy stools, or feel unfinished (that you have not passed all your stool): No Pain in rectum or anus during bowel movements: No Problems with jaundice - that is, yellow discoloration of your skin or eyes, now or in the past: No Problems with having to flush the toilet more than two times due to oily stool, or see stool floating with oil: No PHYSICAL EXAMINATION: VIDEO EXAM: (if completed, performed via video enabled technology) ASSESSMENT: Symptomatic zenkers with dysphagia, interested in treatment PLAN: -Esophagram -CBC, BMP -Z-POEM after esophagram and blood work RTC: 3 months post procedure Scribe Attestation: By signing my name below, ISilvina RN, attest that this documentation has been prepared under the direction and in the presence of Ubaldo Rey . Electronically Signed: Silvina Gregorio RN, Scribe. May 19, 2023 7:56 AM. Provider Attestation: Ubaldo Keene MD , personally performed the services described in this documentation. All medical record entries made by the scribe were at my direction and in my presence. I have reviewed the chart and discharge instructions (if applicable) and agree that the record reflects my personal performance and is accurate and complete. Electronically Signed: Ubaldo (more content not included)... [facility] History of Present illness Narrative 05-19-2023 Ubaldo Rey MD - 05/19/2023 11:30 AM EDT Note Date & Type Note Facility 05-19-2023 History of Presen t illness Narrative Images from the original note were not included. VIRTUAL VISIT PROGRESS NOTE This is a virtual visit using Clusterize video visit. It required patient-provider interaction for the medical decision making as documented below. Due to technical issues with video, had to revert to telephone visit. I have communicated my name and active licensure. The patient's identity and physical location were verified at the time of this visit. Either the patient or their legal packaging sales representative has been informed of the risks and benefits of -- and alternatives to -- treatment through a remote evaluation and consents to proceed with the evaluation remotely. Trey Healy is a 68 year old male seen at the request of Dr. Potter and IRIS Hernandez for evaluation of Zenker's diverticulum. He is having difficulty with swallowing solids and semi solids. Denies symptoms with liquids, regurgitation, or coughing. Denies use of blood thinners. Denies smoking. Zenker Symptom Score. Pre Pocedure Weight loss (over one year) - 0 none 0; 1-10 lbs (0.45-4.54 kg) 1; 11-20 lbs (4.99-9.07 kg) 2;>20 lbs (>9.07 kg) 3 Dysphagia - 2 none 0; solids 1; semi-solids 2; solid and liquids 3 Oropharyngeal Symptoms - 0 Regurgitation none 0; occasional 1; daily 2 Halitosis - 0 none 0; occasional 1; daily 2 Respiratory Symptoms - 0 Cough none 0; occasional 1; daily 2 Hoarseness - 1 none 0; occasional 1; daily 2 Pneumonia - 0 No 0; Yes 2 TOTAL SCORE: 01/07 Size of Zenkers diverticulum - cm Duration of symptoms - 4 years Globus sensation - no Last Office Visit 03/15/2023 ES HernandezC EGD 12/02/2021 LABS: No recent labs to review HISTORY REVIEWED (electronic chart updated): PAST MEDICAL HISTORY Diagnosis Date [place] (hard of hearing) Migraines PAST SURGICAL HISTORY Procedure Laterality Date COLONOSCOPY 2013 PAST SURGICAL HISTORY OF excision of nevi superior left eye REPAIR UMBILICAL FOX,5+Y/O,LENNY 9-17-14 VASECTOMY FAMILY HISTORY Problem Relation Age of Onset Diabetes Mother Social History Tobacco Use Smoking status: Never Substance Use Topics Alcohol use: No Drug use: No Current Outpatient Medications Medication Sig tamsulosin (FLOMAX) 0.4 mg cp24 Take 1 capsule by mouth daily at bedtime. No current facility-administered medications for this visit. ALLERGIES No Known Allergies REVIEW OF SYSTEMS: GENERAL: feeling well without fatigue, no recent change in weight GI: normal appetite, tolerating PO well, BMs normal, and no abdominal pain Answers submitted by the patient for this visit: Review of Systems Gastroenterology (Submitted on 05/13/2023) Fever: No Chills: No Night Sweats: No Unitentional Weight Change: No A Cough: No Difficulty Breathing: No Chest Pain: No Belly pain: No A feeling of fullness or have belly pain after eating: No Food getting stuck in your throat or chest after eating: Yes Nausea - that is, a feeling like you could vomit: No Regurgitation - that is, food or liquid coming back up into your throat or mouth without vomiting, or feel burning behind your breast bone: Yes Loss of appetite: No To throw up or vomit: No Blood in your stools: No Black tarry stools: No Loose or watery stools: No The feeling like you need to empty your bowels right away - that is, feel as if you would have an accident: No Bowel incontinence - that is, have an accident because you cannot make it to the bathroom in time: No Problems with straining while having bowel movements , hard or lumpy stools, or feel unfinished (that you have not passed all your stool): No Pain in rectum or anus during bowel movements: No Problems with jaundice - that is, yellow discoloration of your skin or eyes, now or in the past: No Problems with having to flush the toilet more than two times due to oily stool, or see stool floating with oil: No PHYSICAL EXAMINATION: VIDEO EXAM: (if completed, performed via video enabled technology) ASSESSMENT: Symptomatic zenkers with dysphagia, interested in treatment PLAN: -Esophagram -CBC, BMP -Z-POEM after esophagram and blood work RTC: 3 months post procedure Scribe Attestation: By signing my name below, Silvina Keene RN, attest that this documentation has been prepared under the direction and in the presence of Ubaldo Rey . Electronically Signed: Silvina Gregorio RN, Scribe. May 19, 2023 7:56 AM. Provider Attestation: Ubaldo Keene MD , personally performed the services described in this documentation. All medical record entries made by the scribe were at my direction and in my presence. I have reviewed the chart and discharge instructions (if applicable) and agree that the record reflects my personal performance and is accurate and complete. Electronically Signed: Ubaldo Rey MD . May 19, 2023 12:28 PM documented in this encounter [facility] Evaluation note Note Date & Type Note Facility documented in this encounter [facility] Reason for referral (narrative) Outpatient Procedure (Routine) - Pending Review Note Date & Type Note Facility Referral ID Status Reason Start Date Expiration Date Visits Requested Visits Authorized [id number] Pending Review Auto-Generat ed Referral 05/19/2023 05/19/2024 1 1 * Outpatient Procedure (Routine) - Pending Review Specialty Diagnoses / Procedures Referred By Soheila howe Referred To Contact [facility] Diagnoses Zenker's diverticulum Procedures EGD - THERAPEUTIC, EUS, OR TUBE INTERVENTIONS ESOPHAGOSCOPY FLEXIBLE [place] [address] [place] [address] [facility] [place] [address] Referral ID Status Reason Start Date Expiration Date Visits Requested Visits Authorized [id number] Pending Review Auto-Generat ed Referral 05/19/2023 05/19/2024 1 1 * Diagnostic Procedure Only (Routine) - Pending Review Specialty Diagnoses / Procedures Referred By Soheila howe Referred To Contact XR IMAGING Diagnoses Zenker's diverticulum Procedures XR ESOPHAGRAM RADIOLOGIC EXAM ESOPHAGUS SINGLE CONTRAST STUDY Ubaldo Rey MD [address] [place] [address] Xr Imaging Referral ID Status Reason Start Date Expiration Date Visits Requested Visits Authorized [id number] Pending Review Auto-Generat ed Referral 05/19/2023 06/17/2024 1 1 [facility] Summary Purpose Family History No Family History Records FoundNo Family History Records Found Advance Directives No Advanced Directives Records FoundNo Advanced Directives Records Found Additional Source Comments (unrecognized sect ion and content) No Status Records FoundNo Status Records Found INFORMATION SOURCE (unrecogn ized section and content) DATE CREATED AUTHOR AUTHOR'S KEREN ISBELL 07/28/2023 [facility] Source Comments (unrecognize d section and content) In the event this informatio n is protected by the Federal Confidentiality of Alcohol and Drug Abuse Patient Records regulations: The Federal rules restrict any use of the information to criminally investigate or prosecute any alcohol or drug abuse patient.[facility] Reason for Visit (unrecogniz ed section and content) Care Teams (unrecognized sec tion and content) FOR RECORDS PERTAINING TO PATIENTS WHO ARE OR HAVE BEEN ENROLLED IN A CHEMICAL DEPENDENCY/SUBSTANCEABUSE PROGRAM, SOME INFORMATION MAY BE OMITTED. This clinical summary was aggregated from multiple sources. Caution should be exercised in using it in the provision of clinical care. This summary normalizes information from multiple sources, and as a consequence, information in this document may materially change the coding, format and clinical context of patient data. In addition, data may be omitted in some cases. CLINICAL DECISIONS SHOULD BE BASED ON THE PRIMARY CLINICAL RECORDS. [employer] provides no warranty or guarantee of the accuracy or completeness of information in this document.
== END | disposition home or self-care (01) ==
LOC: MFPLAB 10:30
PROVIDERS: PCP Family Medicine; Visit Provider Family Medicine
DX: E55.9 Vitamin D deficiency, unspecified (principal); E78.5 Hyperlipidemia, unspecified
CPT/HCPCS: 36415; 80053; 80061; 82306; 85025

== ENCOUNTER → 2024-07-12 | Outpatient (CLI) | payer MEDICARE, SELFPAY ==
[2024-07-12 15:48] LABS: PSA,Total - Annual Screen 2.35 ng/mL (0.00-4.00)
== END | disposition home or self-care (01) ==
LOC: MFPLAB 11:03
PROVIDERS: PCP Family Medicine; Visit Provider Family Medicine
DX: Z12.5 Encounter for screening for malignant neoplasm of prostate (principal)
CPT/HCPCS: 36415; 84153; G0103

== ENCOUNTER → 2024-08-03 | Outpatient (CLI) | payer MEDICARE, SELFPAY ==
--- NOTE | 2024-08-03 11:50 | US_ITS ---
INDICATION: incomplete bladder emptying EXAMINATION: Ultrasound US Post Void Residual Urine/Bladder TECHNIQUE: Brito scale and color doppler imaging was performed of the urinary bladder. COMPARISON: No relevant prior comparison study available FINDINGS: No stones, masses, or wall thickening. Pre-void volume is 207. Post-void volume is 122. No ureteral jet is seen from either side. The calculated prostate volume is 43 cc. US/Post Void Residual Bladder IMPRESSION: 1. Moderate post void residue. 2. Prominent prostate. Electronically Signed: Omar Diaz MD at 15:38 EDT ,
== END | disposition home or self-care (01) ==
LOC: US 11:49
PROVIDERS: PCP Family Medicine; Referring Provider Family Medicine; Visit Provider Family Medicine
DX: R33.9 Retention of urine, unspecified (principal)
CPT/HCPCS: 51798

== ENCOUNTER → 2025-01-09 | Outpatient (CLI) | payer MEDICARE, SELFPAY ==
[2025-01-09 15:00] LABS: Absolute Lymphocyte Count 1.39 X10^3/uL (0.83-4.51); Absolute Neutrophil Count 2.8 X10^3/uL (2.0-7.7); Basophil# 0.05 X10^3/uL; Basophil% 1.1 % (0-1); Eosinophil# 0.12 X10^3/uL; Eosinophils% 2.5 % (0-5); Hematocrit 42.4 % (40-54); Hemoglobin 14.5 g/dL (13.0-16.5); Lymphocyte # 1.39 X10^3/ul (0.83-4.51); Lymphocyte % 29.5 % (19-41); Mean Corp Hgb Conc 34.2 g/dL (32-36); Mean Corpuscular Volume 90.8 fL (80-94); Mean Platelet Vol. 9.2 fl (6.2-12.0); Monocyte# 0.33 X10^3/uL; NRBC Flagged by Analyzer 0 % (0-5); Neutrophil # 2.81 X10^3/uL (2.7-7.7); Neutrophil % 59.7 % (47-70); Platelet Count 209 K/mm3 (150-450); RBC Distribution Width CV 12.7 % (11.6-14.6); RBC Distribution Width SD 41.6 fl (35.1-43.9); Red Blood Count 4.67 M/mm3 (4.6-6.2); White Blood Count 4.7 K/mm3 (4.4-11.0)
[2025-01-09 19:31] LABS: ALB/GLOB Ratio 1.6 RATIO (0.9-2.4); AST(SGOT) 20 U/L (<=37); Alanine Aminotransfer ALT/SGPT 10 U/L (<=46); Albumin, Serum 4.2 g/dL (3.4-4.8); Alkaline Phosphatase 53 U/L (40-129); Anion Gap 10 (5-15); BUN 12 mg/dL (4-19); BUN/Creat Ratio 12.7 RATIO (10-20); Bilirubin, Direct 0.35 mg/dL (0.00-0.30); Calcium,Total 9.6 mg/dL (7.6-11.0); Carbon Dioxide 24.8 mmol/L (21.0-32.0); Chloride 102 mmol/L (98-108); Cholesterol 182 mg/dL (<=200); Creatinine, Serum 0.93 mg/dL (0.70-1.20); EST Glomerular Filtration Rate 89 (>60); Globulin 2.6 g/dL (2.2-4.2); Glucose 87 mg/dL (70-99); High Density Lipoprotein 60 mg/dL; Low Density Lipoprotein Calc. 108 mg/dL; Potassium 4.1 mmol/L (3.3-5.1); Protein, Total 6.8 g/dL (5.9-8.4); Sodium Level 138 mmol/L (133-145); Total Bilirubin 0.88 mg/dL (0.00-1.30); Triglycerides 71 mg/dL; Very Low Density Lipoprotein 14 mg/dL (5-40); Vitamin D,25 Hydroxy 70.9 ng/mL (30-100); cholesterol:hdl ratio screen 3.04
== END | disposition home or self-care (01) ==
PROVIDERS: PCP Family Medicine; Referring Provider Family Medicine; Visit Provider Family Medicine
DX: E80.6 Other disorders of bilirubin metabolism (principal); E55.9 Vitamin D deficiency, unspecified; E78.5 Hyperlipidemia, unspecified
CPT/HCPCS: 36415; 80053; 80061; 82248; 82306; 85025

== ENCOUNTER → 2025-01-29 | Outpatient (CLI) | payer MEDICARE, SELFPAY ==
--- NOTE | 2025-01-29 12:54 | ART_ITS ---
Reason For Study Reason For Study: PVD Procedure A bilateral lower extremity continuous wave Doppler with analog waveform analysis,segmental pressures,and ankle brachial indexes with exercise. Left Segmental Pressures Left brachial= 109mmHg. Left posterior tibial artery = 158mmHg. Left dorsalis pedis artery = 136mmHg. Left digit = 105 mmHg. The left posterior tibial artery waveforms are triphasic. The left dorsalis pedis waveforms are triphasic. Right Segmental Pressures Right brachial= 112mmHg. Right posterior tibial artery = 144mmHg. Right dorsalis pedis artery = 133mmHg. Right digit = 118 mmHg. The right posterior tibial artery waveforms are triphasic. The right dorsalis pedis waveforms are triphasic. Indices The right ankle brachial index by the posterior tibial artery is 1.29. The right ankle brachial index by the dorsalis pedis is 1.19. The right digital-brachial index is 1.05. The right post exercise ankle brachial index is 1.48. The left ankle brachial index by the posterior tibial artery is 1.41. The left ankle brachial index by the dorsalis pedis is 1.21. The left digital-brachial index is 0.94. The left post exercise ankle brachial index is 1.48. VL/Lower Ext Art Exam w/ Exercise Interpretation Summary Right MAIK 1.29 , normal. TBI and Doppler/PVR waveforms of the right leg normal at rest. Right lower extremity exhibits normal response to exercise. Left MAIK 1.41, normal. TBI and Doppler/PVR waveforms of the left leg normal at rest. Left lower extremity exhibits normal response to exercise. Ordering Physician: Cindy Harrison Referring Physician: CINDY HARRISON MD Performed By: Nilay Valero, RVT
--- NOTE | 2025-01-29 12:54 | CDU_ITS ---
Reason For Study Reason For Study: Carotid Artery Stenosis Rt. Velocities/BP Lt. Velocities/BP Prox CCA 100.2/26.5 cm/sec. Prox CCA 89.1/21.6 cm/sec. Mid CCA 98.1/24.5 cm/sec. Mid CCA 74.4/11.8 cm/sec. Dist CCA 88.5/23.3 cm/sec. Dist CCA 70.7/11.8 cm/sec. Prox ICA 67.7/22.3 cm/sec. Prox ICA 62.1/21.6 cm/sec. Mid ICA 69.6/20.5 cm/sec. Mid ICA 76.9/27.8 cm/sec. Dist ICA 68.3/23.9 cm/sec. Dist ICA 69.5/30.2 cm/sec. Rt. ICA/CCA = 0.7. Lt. ICA/CCA = 1.0. Prox ECA 92.9/13.5 cm/sec. Prox ECA 87.9/10.6 cm/sec. Rt. Vert. 56.0/19.2 cm/sec. Lt. Vert. 51.1/14.2 cm/sec. Right Extracranial There is intimal thickening but no significant atherosclerotic plaque noted in the right common carotid artery. There is intimal thickening but no significant atherosclerotic plaque noted in the right internal carotid artery. There is intimal thickening but no significant atherosclerotic plaque noted in the right external carotid artery. Antegrade flow is noted in the right vertebral artery. Left Extracranial There is intimal thickening but no significant atherosclerotic plaque noted in the left common carotid artery. There is heterogeneous, smooth atherosclerotic plaque noted in the left internal carotid artery. There is intimal thickening but no significant atherosclerotic plaque noted in the left external carotid artery. Antegrade flow is noted in the left vertebral artery. Procedure Carotid Duplex 46391. This is a Carotid Duplex examination using B-mode, color flow and specral Doppler. The exam was diagnostic. Exam performed in department. VL/Carotid Duplex Ultrasound Interpretation Summary Normal right extracranial internal carotid. Mild (<50%) stenosis left extracranial internal carotid. Patent and antegrade vertebrals bilaterally. Ordering Physician: Dave Harrison Referring Physician: Dave Harrison Performed By: Nilay Valero RVT
== END | disposition home or self-care (01) ==
LOC: CVS 12:52
PROVIDERS: PCP Family Medicine; Referring Provider Family Medicine; Visit Provider Family Medicine
DX: I65.23 Occlusion and stenosis of bilateral carotid arteries (principal); I73.9 Peripheral vascular disease, unspecified
CPT/HCPCS: 93880; 93924

== ENCOUNTER → 2025-05-09 | Outpatient (CLI) | payer MEDICARE, SELFPAY ==
[2025-05-09 19:11] LABS: AST(SGOT) 20 U/L (<=37); Alanine Aminotransfer ALT/SGPT 16 U/L (<=46); Albumin, Serum 4.1 g/dL (3.4-4.8); Alkaline Phosphatase 53 U/L (40-129); Anion Gap 11 (5-15); BUN 13 mg/dL (4-19); BUN/Creat Ratio 13.3 RATIO (10-20); Calcium,Total 9.4 mg/dL (7.6-11.0); Carbon Dioxide 23.1 mmol/L (21.0-32.0); Chloride 104 mmol/L (98-108); Cholesterol 202 mg/dL (<=200); Globulin 2.5 g/dL (2.2-4.2); Glucose 99 mg/dL (70-99); Low Density Lipoprotein Calc. 114 mg/dL; Potassium 3.9 mmol/L (3.3-5.1); Triglycerides 121 mg/dL; Very Low Density Lipoprotein 24 mg/dL (5-40); Vitamin D,25 Hydroxy 72.9 ng/mL (30-100); cholesterol:hdl ratio screen 3.15
== END | disposition home or self-care (01) ==
LOC: MFPLAB 14:34
PROVIDERS: PCP Family Medicine; Referring Provider Family Medicine; Visit Provider Family Medicine
DX: E55.9 Vitamin D deficiency, unspecified (principal); I73.9 Peripheral vascular disease, unspecified
CPT/HCPCS: 36415; 80053; 80061; 82306